=== PATIENT | male | born 1935 | race Caucasian/White ===

== ENCOUNTER 2017-02-24 11:22 | Day surgery (SDC) | payer OTHER, BC ==
[2017-02-24] MEDS ORDERED: NS 500 ML IV ONE (11:47)
--- NOTE | 2017-02-24 12:10 | PDPROPOC ---
Sedation Plan of Care Sedation Plan of Care: vital signs stable, mental status noted, patient educated of risks, benefits, alternatives, patient can tolerate sedation ASA Classification: ASA 2 Planned drugs: fentanyl, midazolam Mallampati Score: Class 2 Mallampati Reference Image: 2 Patient passed 3-3-2 rule?: Yes
--- NOTE | 2017-02-24 12:11 | PDGENHP ---
History & Physical Chief Complaint: phx polyps History of Present Illness: large polyps removed one year ago Pertinent Past, Social, Family History: no tobbaco quit 1965, no alcohol. fhx - no cancers Relevant Physical Exam: a+ox3. CTA. S1S2, RRR. +Bs, soft, nt Cardiorespiratory Assessment: class 2. nml cardia and lung exam
[2017-02-24 12:17] VITALS: TEMP 97.5
[2017-02-24] MEDS ORDERED: MIDAZOLAM 2 MG/2 ML VIAL ONE (12:19)
[2017-02-24] MEDS ORDERED: fentaNYL 100 MCG/2 ML INJ ONE (12:19)
[2017-02-24 13:12] VITALS: PULSE 57
--- NOTE | 2017-02-24 13:16 | GIREPORT ---
[facility] Surgical Services - Endoscopy Department Patient Name: Jeremie Wallace Procedure Date: 02/24/2017 12:04 PM Patient Type: Outpatient Attending MD/ ER Physician: Adriel Sim Procedure: Colonoscopy Indications: Surveillance: Piecemeal removal of large sessile adenoma last colonosco py (< 3 yrs) Providers: Hector Perla MD Medicines: Fentanyl 100 micrograms IV, Midazolam 5 mg IV Complications: No immediate complications. Estimated blood loss: Minimal. Description of Procedure: After obtaining informed consent, the scope was passed under direct vision. Throughout the proce dure, the patient's blood pressure, pulse, and oxygen saturations were monitored continuously. The Colonoscope with irrigation channel was introduced through the anus and advanced to the terminal ileum, with identification of the appendiceal orifice and IC valve. The colonoscopy was technica lly difficult and complex due to significant looping. Successful completion of the procedure was aid ed by increasing the dose of sedation medication and straightening and shortening the scope to obtain bowel loop reduction. The patient tolerated the procedure well. The quality of the bowel preparation w as good. Findings: The digital rectal exam was normal. The terminal ileum appeared normal. A 2 mm polyp was found in the proximal transverse colon. The polyp was sessile. The polyp was re moved with a cold biopsy forceps. Resection and retrieval were complete. Estimated blood loss was mini mal. A 8 mm polyp was found in the proximal transverse colon. The polyp was sessile. The polyp was re moved with a cold snare. Resection and retrieval were complete. Estimated blood loss was minimal. A post polypectomy scar was found in the proximal transverse colon. There was residual polypoid tissue. The polyp was removed with a hot snare. Resection and retrieval were complete. Estimated blood loss: none. A post polypectomy scar was found in the ascending colon. The scar tissue was healthy in appeara nce. There was no evidence of the previous polyp. A post polypectomy scar was found in the mid transverse colon. The scar tissue was healthy in appearance. There was no evidence of the previous polyp. Multiple small and large-mouthed diverticula were found in the sigmoid colon, descending colon a nd transverse colon. Non-bleeding internal hemorrhoids were found during retroflexion. The exam was otherwise without abnormality. Estimated Blood Loss: Estimated blood loss was minimal. Post Op Diagnosis: - The examined portion of the ileum was normal. - One 2 mm polyp in the proximal transverse colon, removed with a cold biopsy forceps. Resected and retrieved. - One 8 mm polyp in the proximal transverse colon, removed with a cold snare. Resected and retrieved. - Post-polypectomy scar in the proximal transverse colon. - Post-polypectomy scar in the ascending colon. - Post-polypectomy scar in the mid transverse colon. - Diverticulosis in the sigmoid colon, in the descending colon and in t he transverse colon. - Non-bleeding internal hemorrhoids. - The examination was otherwise normal. Recommendation: - Await pathology results. - My office will call with the pathology result with 5-7 days. If you h ave not heard from my office by 12-14, do not assume the pathology is bobo l, please call [phone] to get the pathology reults. One or two years pending review of pathology. - Repeat colonoscopy date to be determined after pending pathology resu lts are reviewed for surveillance based on pathology results. - Low fiber diet. - 30-35 grams of dietary fiber per day. Can use supplemental fiber. - A high fiber diet may decrease risk of complications from diverticulo sis. There is no need to avoid seeds or nuts. - Patient has a contact number available for emergencies. The signs and symptoms of potential delayed complications were discussed with the pat lashae. Return to normal activities tomorrow. Written discharge instructions we re provided to the patient. - Continue present medications. - Discharge patient to home (ambulatory). - Return to primary care physician as previously scheduled. - Thank you for allowing me to help in your patient's care. Do not hesi salas to call with any questions. Attending Participation: I personally performed the entire procedure. Pan Young M.D Hector Perla MD 02/24/2017 1:16:09 PM Number of Addenda: 0 Note Initiated On: 02/24/2017 12:04 PM Total Procedure Duration Time 0 hours 27 minutes 11 seconds [email or web address]
[2017-02-24 13:41] VITALS: BP 147/80; RESP 20; O2SAT 92
== END 2017-02-24 13:54 | disposition home or self-care (01) ==
LOC: FSGY 11:22
PROVIDERS: ATTEND Internal Medicine Gastroenterology
PROC: 0DBL8ZX Excision of Transverse Colon, Via Natural or Artificial Opening Endoscopic, Diagnostic (ICD-10-PCS; principal; 2017-02-24 12:30)
DX: D12.3 Benign neoplasm of transverse colon (principal); Z86.010 Personal history of colon polyps; K57.30 Diverticulosis of large intestine without perforation or abscess without bleeding; K64.8 Other hemorrhoids
CPT/HCPCS: J2250; J3010

== ENCOUNTER 2017-07-20 13:22 | Emergency (ER) | payer OTHER, BC ==
[2017-07-20 13:33] VITALS: BP 169/95; RESP 16; TEMP 98.2; O2SAT 95
[2017-07-20] MEDS ORDERED: LET GEL TOPICAL 1 EA SYR TP ONE (13:43)
--- NOTE | 2017-07-20 13:52 | EDPHY ---
H & P Stated Complaint: Hit head after L hip felt weak. denies LOC Time Seen by Provider: 07/20/17 13:26 HPI/ROS: CHIEF COMPLAINT: Head injury History by patient HISTORY OF PRESENT ILLNESS: 82-year-old man presents complaining of fall striking his head on the garage floor. Patient states that for the past few days he has been having some left hip pain which he attributed to may be straining muscle wall crawling out of his crawl space. He woke up this morning his hip was not painful and seem to be responding to Tylenol however when he stepped up in his garage the hip suddenly"gave out"and he went down striking the back of his head. His witnessed this event. He did not lose consciousness. Patient laid on the ground for a while and then was able to get up on his own and use a cane to help him get into the car. He said he felt sort of dizzy and unsteady and he still feels that way. There has been no nausea or vomiting. He denies any focal numbness weakness, difficulty speaking swallowing or visual problems. He takes a baby aspirin but no other blood thinners. He denies any hip pain or stiffness currently. Patient states that his hip is been bothering him for the past several days and that is very painful specially when he gets up in the morning. He has had 2 episodes of this given outward suddenly feels like he can't support him and he goes down and last a few seconds and then he is able to get up on his own. Not associated any other numbness or weakness or neurologic symptoms. Patient had an extensive workup for stroke about a year ago when he had an episode of ataxia including a negative MRI. REVIEW OF SYSTEMS: As in HPI, and all other systems reviewed and are negative Source: Patient, Family - Personal History Current Tetanus Diphtheria and Acellular Pertussis (TDAP): Unsure - Medical/Surgical History Hx Asthma: No Hx Chronic Respiratory Disease: No Hx Diabetes: No Hx Cardiac Disease: No Hx Renal Disease: No Hx Cirrhosis: No Hx Alcoholism: No Hx HIV/AIDS: No Hx Splenectomy or Spleen Trauma: No Other PMH: KIDNEY STONE, PROSTATE CA WITH SURGERY - Social History Smoking Status: Former smoker - Physical Exam Exam: General Appearance: Alert, elderly,pleasant and cooperative . Head: normocephalic, positive abrasion and hematoma mid parietal area Eyes: Pupils equal and round, reactive to light, no pallor or injection. Extraocular movements intact. Mouth: Mucous membranes moist. Neck: No bony tenderness, full range of motion without pain Respiratory: Normal, effort, lungs are clear to auscultation. No wheezes, rales or rhonchi. Cardiovascular: Regular rate and rhythm. S1, S2, no murmurs, gallops or rubs appreciated Gastrointestinal: Abdomen is soft and nontender, no masses, bowel sounds normal. Back: No CVA tenderness, no bony tenderness Neurological: Awake, alert and oriented x 3, no pronator drift, normal gait, no pronator drift Skin: Warm and dry, no rashes. Musculoskeletal: Right hip full range of motion without pain including internal -external rotation flexion and extension, No deformities or tenderness. Pelvis is stable and nontender Extremities: full range of motion, no edema, DP2+ bilat Psychiatric: Patient has normal affect, there is no agitation. Constitutional: Initial Vital Signs Temperature (C) 36.8 C 07/20/17 13:26 Heart Rate 93 07/20/17 13:26 Respiratory Rate 16 07/20/17 13:26 Blood Pressure 169/95 H 07/20/17 13:26 O2 Sat (%) 95 07/20/17 13:26 O2 Delivery Mode Room Air Allergies/Adverse Reactions: No Known Allergies Allergy (Verified 07/20/17 13:40) Home Medications: Medication Instructions Recorded Aspirin 81mg (*) DAILY 12/30/15 Atorvastatin Calcium HS 02/11/17 Fiber DAILY 02/11/17 Medical Decision Making - Diagnostics Imaging Results: Imaging Impressions Head CT 07/20/17 13:38 Impression: 1. Small right parietal scalp hematoma. 2. No acute fracture or intracranial hemorrhage. Findings were discussed with Yvan at the [facility] Emergency Department. He will convey the results to Dr. Kylie Melgar. Results called on July 20, 2017 at 1421 hours. Imaging: Discussed imaging studies w/ call box wirer Radiologist ED Course/Re-evaluation: 82-year-old man presents complaining of fall and head injury after his left hip "gave out". Hip symptoms have now resolved and patient has a completely normal neurologic exam as well as a normal exam except for tenderness along the greater trochanter and pain against resistance with AB duction of the hip. X- ray of the hip showed some arthritis but no evidence of acute fracture. Head CT was read as nothing acute per the radiologist. Wound on the head was non suturable abrasion. Patient is ambulatory in the emergency department. I think his leg giving out symptoms are atypical for stroke and given the pain and stiffness he has been experiencing I think this is more likely a musculoskeletal problem. I am recommending follow up with primary care physician and/or orthopedist in consideration of physical therapy. I discussed return precautions with the patient and his . Patient is discharged home in stable condition. - Data Points Medications Given: Discontinued Medications Tetracaine/Epinephrine/Lidocaine (Let Gel Topical) 1 ea TP EDNOW ONE Stop: 07/20/17 13:44 Last Admin: 07/20/17 13:45 Dose: 1 ea Departure - Departure Disposition: Home, Routine, Self-Care Clinical Impression: Hip pain, left Closed head injury Qualifiers: Encounter type: initial encounter Qualified Code(s): S09.90XA - Unspecified injury of head, initial encounter Scalp abrasion Qualifiers: Encounter type: initial encounter Qualified Code(s): S00.01XA - Abrasion of scalp, initial encounter Condition: Good Instructions: Head Injury (ED) Additional Instructions: You were seen by Dr. Kylie Melgar today. Your CT scan showed no evidence of internal bleeding. He may take Tylenol as needed for pain for your headache and hip. Please follow up with her primary care physician as soon as possible to have your hip evaluated. Consider physical therapy. Return for any worsening or new concerns. Referrals: Jacob Ramos MD [Primary Care Provider] - As per Instructions
[2017-07-20] MEDS ORDERED: TDAP ADULT 0.5 ML INJ (BOOSTRIX) IM ONE (15:15)
[2017-07-20 15:44] VITALS: PULSE 90
== END 2017-07-20 15:43 | disposition home or self-care (01) ==
LOC: CED 13:22
DX: S00.01XA Abrasion of scalp, initial encounter (principal); S79.912A Unspecified injury of left hip, initial encounter; Z23 Encounter for immunization; Z85.46 Personal history of malignant neoplasm of prostate; Z87.891 Personal history of nicotine dependence; W18.09XA Striking against other object with subsequent fall, initial encounter
CPT/HCPCS: 70450-PO; 73502-PO

== ENCOUNTER 2018-03-26 09:42 | Emergency (ER) | payer OTHER, BC ==
[2018-03-26] MEDS ORDERED: FLUCONAZOLE 150 MG TAB PO ONE (10:11)
--- NOTE | 2018-03-26 10:14 | EDPHY ---
H & P Time Seen by Provider: 03/26/18 09:48 HPI/ROS: CHIEF COMPLAINT: Left axilla rash and itching HISTORY OF PRESENT ILLNESS: Patient presents with itching and rash to the left axillary area that started on Wednesday. He had partial replacement of his left shoulder performed by Dr. Dee on Wednesday. He states the itching is severe , he called Dr. Dee office and was told to come in to the emergency department. He denies fevers, chills, chest pain, shortness of breath. No oral symptoms. No rash elsewhere. Shoulder is otherwise doing fine although decreased range of motion as postsurgical instructions currently. REVIEW OF SYSTEMS: Negative except per HPI. General Appearance: Alert, no distress. Eyes: Pupils equal and round no icterus HEENT: Oropharynx clear, no angioedema. Respiratory: No respiratory distress, lungs clear to auscultation bilaterally, no wheezing. Cardiac: Regular rate and rhythm no murmurs rubs or gallops. Neurological: Awake, alert, no focal deficits. Skin: Warm and dry, left axillary region with erythematous papular rash with satellite lesions consistent with candidal infection. Difficult to visualize entire axillary region as strict postsurgical instructions with decreased range of motion. Wound area bandaged without drainage. Musculoskeletal: Neck is supple nontender. Extremities are symmetrical, distal functions intact bilaterally, limited range of motion left shoulder. No edema. Psychiatric: Patient is oriented X 3, there is no agitation. Medical/surgical history: Kidney stones, prostate cancer with surgery, left shoulder partial replacement, right shoulder replacement, hyperlipidemia. Social history: Previous smoker stopped in 1963. No EtOH, no drugs. Smoking Status: Former smoker Constitutional: Initial Vital Signs Temperature (C) 36.5 C 03/26/18 09:49 Heart Rate 93 03/26/18 09:49 Respiratory Rate 16 03/26/18 09:49 Blood Pressure 158/92 H 03/26/18 09:49 O2 Sat (%) 94 03/26/18 09:49 O2 Delivery Mode Room Air Allergies/Adverse Reactions: No Known Allergies Allergy (Verified 03/26/18 09:50) Home Medications: Medication Instructions Recorded Aspirin 81mg (*) DAILY 12/30/15 Atorvastatin Calcium HS 02/11/17 Fiber DAILY 02/11/17 Nystatin/Triamcin 30 gm TP BID #1 oint...g. 03/26/18 [Nystatin-Triamcinolone Ointm] Stool Softener 03/26/18 Xarelto 03/26/18 Medical Decision Making Differential Diagnosis: Differential diagnosis includes but is not limited to cellulitis, yeast infection, allergic reaction, drug rash. After evaluation suspicious for candidal infection secondary to decreased range of motion and hygiene of the left axilla. Will treat with oral Diflucan and topical nystatin. Discussed home care and follow-up. Return precautions reviewed as well. Stable for discharge. Departure - Departure Clinical Impression: Katherine infection of flexural skin Condition: Good Instructions: Skin Yeast Infection (ED) Additional Instructions: Use topical nystatin as prescribed. Follow up with Dr. Dee later this week if not improving. Return for more serious symptoms to the emergency department. Referrals: Jacob Ramos MD [Primary Care Provider] - As per Instructions Prescriptions: Nystatin/Triamcin [Nystatin-Triamcinolone Ointm] 30 gm TP BID #1 oint...g.
[2018-03-26 10:22] VITALS: BP 148/88
== END 2018-03-26 10:20 | disposition home or self-care (01) ==
LOC: CED 09:42
DX: B37.2 Candidiasis of skin and nail (principal)

== ENCOUNTER 2018-06-22 07:22 | Day surgery (SDC) | payer OTHER, BC ==
[2018-06-22] MEDS ORDERED: LR 1,000 ML IV ONE (07:34)
--- NOTE | 2018-06-22 08:45 | PDGENHP ---
History & Physical Chief Complaint: phx polyps History of Present Illness: large plyps with residual tissue, possible APC Pertinent Past, Social, Family History: hyperchol,. fhx no cancers. no tobacco since 1965 no alcohol Relevant Physical Exam: A+Ox3. CTA. S1S2. +BS, soft nt Cardiorespiratory Assessment: class 2
--- NOTE | 2018-06-22 08:45 | PDPROPOC ---
Sedation Plan of Care Sedation Plan of Care: vital signs stable, mental status noted, patient educated of risks, benefits, alternatives, patient can tolerate sedation ASA Classification: ASA 2 Planned drugs: fentanyl, midazolam Mallampati Score: Class 2 Mallampati Reference Image: Patient passed 3-3-2 rule?: Yes
[2018-06-22] MEDS ORDERED: fentaNYL 100 MCG/2 ML INJ ONE (08:53)
[2018-06-22] MEDS ORDERED: MIDAZOLAM 2 MG/2 ML VIAL ONE (08:53)
[2018-06-22] MEDS ORDERED: MIDAZOLAM 2 MG/2 ML VIAL IVP ONE (09:29)
[2018-06-22] MEDS ORDERED: fentaNYL 100 MCG/2 ML INJ IVP ONE (09:30)
--- NOTE | 2018-06-22 10:16 | GIREPORT ---
[facility] Surgical Services - Endoscopy Department Patient Name: Jeremie Wallace Procedure Date: 06/22/2018 8:14 AM Patient Type: Outpatient Attending MD/ ER Physician: Prudencio Perla MD Procedure: Colonoscopy Indications: Surveillance: Piecemeal removal of large sessile adenoma last colonosco py (< 3 yrs), High risk colon cancer surveillance: Personal history of adenom a (10 mm or greater in size) Providers: Prudencio Perla MD Referring MD: Jacob Ramos Medicines: Fentanyl 100 micrograms IV, Midazolam 5 mg IV Complications: No immediate complications. Estimated blood loss: Minimal. Description of Procedure: After obtaining informed consent, the scope was passed under direct vis ion. Throughout the procedure, the patient's blood pressure, pulse, and oxyg en saturations were monitored continuously. The Colonoscope with irrigatio n channel was introduced through the anus and advanced to the cecum, identified by the appendiceal orifice, IC valve and transillumination. The colonoscopy was performed without difficulty. The patient tolerated the procedure well. The quality of the bowel preparation was good. Findings: The digital rectal exam was normal. A post polypectomy scar was found in the proximal transverse colon. The scar tissue was healthy in appearance. There was no evidence of the previous polyp. Biopsies were taken with a cold forceps for histology. Estimated blood loss was minimal. A 10 mm polyp was found in the mid transverse colon. The polyp was semi-sessile. The polyp was removed with a cold snare. Resection and retrieval were complete. Estimated blood loss was minimal. A 3 mm polyp was found in the mid transverse colon. The polyp was sessi le. The polyp was removed with a cold biopsy forceps. Resection and retriev al were complete. Estimated blood loss was minimal. A post polypectomy scar was found in the mid transverse colon. The scar tissue was healthy in appearance. There was no evidence of the previous polyp. Multiple diverticula were found in the sigmoid colon, descending colon and transverse colon. The exam was otherwise without abnormality. Estimated Blood Loss: Estimated blood loss was minimal. Post Op Diagnosis: - Post-polypectomy scar in the proximal transverse colon. Biopsied. - One 10 mm polyp in the mid transverse colon, removed with a cold snar e. Resected and retrieved. - One 3 mm polyp in the mid transverse colon, removed with a cold biops y forceps. Resected and retrieved. - Post-polypectomy scar in the mid transverse colon. - Diverticulosis in the sigmoid colon, in the descending colon and in t he transverse colon. - The examination was otherwise normal. Recommendation: - Await pathology results. - My office will call with the pathology result with 5-7 days. If you h ave not heard from my office by 12-14, do not assume the pathology is bobo l, please call [phone] to get the pathology results. - Repeat colonoscopy in 2 years for surveillance. - High fiber diet indefinitely. - 30-35 grams of dietary fiber per day. Can use supplemental fiber. - A high fiber diet may decrease risk of complications from diverticulo sis. There is no need to avoid seeds or nuts. - Patient has a contact number available for emergencies. The signs and symptoms of potential delayed complications were discussed with the pat ient. Return to normal activities tomorrow. Written discharge instructions we re provided to the patient. - Continue present medications. - Avoid Aspirin and NSAIDs for 7-10 days except as used for cardi or st roke prevention. - Discharge patient to home (ambulatory). - Return to primary care physician as previously scheduled. - Thank you for allowing me to help in your patient's care. Do not hesi josue to call with any questions. Attending Participation: I personally performed the entire procedure. Pan Young M.D Prudencio Perla MD 06/22/2018 10:15:27 AM This report has been signed electronicallyMatthew MD Pan Number of Addenda: 0 Note Initiated On: 06/22/2018 8:14 AM Total Procedure Duration Time 0 hours 44 minutes 32 seconds [email or web address]
[2018-06-22 10:55] VITALS: BP 136/87
== END 2018-06-22 10:30 | disposition home or self-care (01) ==
LOC: FSGY 07:22
PROVIDERS: ATTEND Internal Medicine Gastroenterology
PROC: 0DBL8ZX Excision of Transverse Colon, Via Natural or Artificial Opening Endoscopic, Diagnostic (ICD-10-PCS; principal; 2018-06-22 09:00)
DX: Z12.11 Encounter for screening for malignant neoplasm of colon (principal); D12.3 Benign neoplasm of transverse colon; K57.30 Diverticulosis of large intestine without perforation or abscess without bleeding; E78.5 Hyperlipidemia, unspecified; Z86.010 Personal history of colon polyps; Z85.46 Personal history of malignant neoplasm of prostate; Z87.891 Personal history of nicotine dependence; Z96.612 Presence of left artificial shoulder joint; Z96.611 Presence of right artificial shoulder joint
CPT/HCPCS: J2250; J3010

== ENCOUNTER 2018-09-20 10:26 | Day surgery (SDC) | payer OTHER, BC ==
--- NOTE | 2018-09-19 22:10 | GHP ---
[f rep st] HISTORY AND PHYSICAL CURRENT COMPLAINT: Right knee pain. HISTORY OF PRESENT ILLNESS: The patient is an 83-year-old male who had a sudden onset of right knee pain within the last several weeks. MRI exam reveals what appear to new medial and lateral meniscal tears. He wishes to have surgery in order to resolve the problem. ALLERGIES: He lists no drug allergies. CURRENT MEDICATIONS: Include aspirin, atorvastatin, nystatin. PRIOR MEDICAL PROBLEMS: Include arthritis, cancer, high cholesterol, prostate disease. PRIOR SURGERIES: Include a right total shoulder, prostatectomy, shoulder hemiarthroplasty, kidney en doscopy. SOCIAL HISTORY: He is a former smoker. He is not a drinker. PHYSICAL EXAM: HEENT: His pupils are equal, round, reactive to light. CHEST: Clear to auscultatio n. HEART: Regular rate and rhythm. ABDOMEN: Soft and nontender. RIGHT KNEE: Moderate effusion. He is tender on the lateral joint lines. IMAGING: MRI reveals some arthritic changes in the face of what appear to be new onset medial and la teral meniscal tears. ASSESSMENT: Patient is status post right medial and lateral meniscal tears. PLAN: Take him to the operating room to undergo a right knee arthroscopy. /[id number]/MODL
--- NOTE | 2018-09-20 09:21 | PDHPUP ---
History & Physical Update H&P update statement: This history and physical update is based on an assessment of the patient which was completed after admission or registration (within 24 hours), but prior to the surgery/procedure. H&P update: H&P reviewed & patient examined, no change in patient's condition since H&P completed
[2018-09-20] MEDS ORDERED: ceFAZolin 2 GM/DEXTROSE 100 ML IV ONE (10:38)
[2018-09-20] MEDS ORDERED: LR 1,000 ML IV SCH ×2 (10:38→14:30)
[2018-09-20] MEDS ORDERED: LR 1,000 ML IV ONE (10:39)
[2018-09-20] MEDS ORDERED: LIDOCAINE 1% 2 ML INJ ID PRN (10:39)
[2018-09-20] MEDS ORDERED: BUPIVACAINE/EPI 0.5% 30 ML SDV ONE (10:47)
--- NOTE | 2018-09-20 12:44 | PDANEPAE ---
ANE History of Present Illness right knee pain, here for right knee arthroscopy ANE Past Medical History - Cardiovascular History Hx Hypertension: No Hx Arrhythmias: No Hx Chest Pain: No Hx Coronary Artery / Peripheral Vascular Disease: No Hx CHF / Valvular Disease: No Hx Palpitations: No Cardiovascular History Comment: HLD - Pulmonary History Hx COPD: No Hx Asthma/Reactive Airway Disease: No Hx Recent Upper Respiratory Infection: No Hx Oxygen in Use at Home: No Hx Sleep Apnea: No Sleep Apnea Screening Result - Last Documented: Negative Pulmonary History Comment: no SOB climbing 2 flights of stairs - Neurologic History Hx Cerebrovascular Accident: No Hx Seizures: No Hx Dementia: No Neurologic History Comment: dizzy spell F/U by Dr Daniele Massey and CT and MRI NEG. Pelayo's palsy - Endocrine History Hx Diabetes: No - Renal History Hx Renal Disorders: Yes Renal History Comment: Kidney stones. Kinked ureter. Prostate CA s/p prostatectomy, radiation therapy. NOCTURIA - Liver History Hx Hepatic Disorders: No - Neurological & Psychiatric Hx Hx Neurological and Psychiatric Disorders: No - Cancer History Hx Cancer: Yes Cancer History Comment: PROSTATE - Congenital Disorder History Hx Congenital Disorders: No - GI History Hx Gastrointestinal Disorders: Yes Gastrointestinal History Comment: PREV COLON POLYPS. Diverticulosis - Other Health History Other Health History: skin bruises easily - Chronic Pain History Chronic Pain: No - Surgical History Prior Surgeries: L SHOULDER REPLACEMENT 03/2018. COLONOSCOPY X3 WITH POLYP REMVL. PROSTATECTOMY FOR CA. REMOVAL KIDNEY STONE AND BLOCKED URETER, Ureter repair. RT SHLDR REPLACEMENT. TYE CATARACT ANE Review of Systems Review of Systems: - Exercise capacity METS (RN): 4 METS ANE Patient History - Allergies Allergies/Adverse Reactions: chlorhexidine Allergy (Verified 09/20/18 11:06) Rash - Home Medications Home Medications: Aspirin 81mg (*) 81 mg DAILY 12/30/15 [Last Taken 09/13/18] Atorvastatin Calcium 20 mg PO HS 02/11/17 [Last Taken 09/19/18] Fiber DAILY 02/11/17 [Last Taken 1 Week Ago ~06/15/18] Stool Softener 03/26/18 [Last Taken 09/14/18] Acetaminophen [Acetaminophen Extra Strength] 500 mg PO DAILY PRN 09/16/18 [Last Taken 09/19/18] Cholecalciferol (Vitamin D3) [Vitamin D3] 2,000 unit PO 09/16/18 [Last Taken 07/05] Ferrous Sulfate mg PO 09/16/18 [Last Taken 09/16/18] - NPO status NPO Since - Liquids (Date): 09/20/18 NPO Since - Liquids (Time): 07:30 NPO Since - Solids (Date): 09/20/18 NPO Since - Solids (Time): 07:30 - Smoking Hx Smoking Status: Former smoker - Family Anes Hx Family Hx Anesthesia Complications: None. ANE Labs/Vital Signs - Vital Signs Height: 180.34 cm Weight: 90.718 kg ANE Physical Exam - Airway Neck exam: FROM, decreased ROM Mallampati Score: Class 2 Mouth exam: normal dental/mouth exam - Pulmonary Pulmonary: no respiratory distress, no rales or rhonchi - Cardiovascular Cardiovascular: regular rate and rhythym, no murmur, rub, or gallop - ASA Status ASA Status: III ANE Anesthesia Plan Anesthesia Plan: GA w LMA Total IV Anesthesia: No
[2018-09-20] MEDS ORDERED: fentaNYL 100 MCG/2 ML INJ ONE ×2 (13:08→14:36)
[2018-09-20] MEDS ORDERED: LIDOCAINE 2% 100 MG/5 ML SYR ONE (13:08)
[2018-09-20] MEDS ORDERED: PROPOFOL 200 MG/20 ML VIAL ONE (13:09)
[2018-09-20] MEDS ORDERED: oxyCODONE IR 5 MG TAB PO PRN ×2 (13:42→14:12)
[2018-09-20] MEDS ORDERED: ACETAMINOPHEN 500 MG TAB PO PRN (13:42)
[2018-09-20] MEDS ORDERED: MEPERIDINE 25 MG/0.5 ML AMP IVP PRN (13:42)
[2018-09-20] MEDS ORDERED: ONDANSETRON 4 MG/2 ML VIAL IVP PRN ×2 (13:42→14:12)
[2018-09-20] MEDS ORDERED: NALOXONE HCL 0.4 MG/ML INJ IVP PRN (13:42)
[2018-09-20] MEDS ORDERED: fentaNYL 100 MCG/2 ML INJ IVP PRN (13:42)
[2018-09-20] MEDS ORDERED: LACTULOSE 20 GM/30 ML UDCUP PO PRN (14:12)
[2018-09-20] MEDS ORDERED: traMADol 50 MG TAB PO PRN (14:12)
[2018-09-20] MEDS ORDERED: DIPHENOXYLATE/ATROPINE LOMOTIL 1 TAB PO PRN (14:12)
[2018-09-20] MEDS ORDERED: PROMETHAZINE HCL 25 MG/ML INJ IVP PRN (14:12)
[2018-09-20] MEDS ORDERED: TAPENTADOL HCL 50 MG TAB PO PRN (14:12)
[2018-09-20] MEDS ORDERED: CYCLOBENZAPRINE 10 MG TAB PO PRN (14:12)
[2018-09-20] MEDS ORDERED: TEMAZEPAM 15 MG CAP PO PRN (14:12)
[2018-09-20] MEDS ORDERED: MAGNESIUM HYDROXIDE 30 ML UDCUP PO PRN (14:12)
[2018-09-20] MEDS ORDERED: POLYETHYLENE GLYCOL 3350 17 GM PKT PO PRN (14:12)
[2018-09-20] MEDS ORDERED: KETOROLAC 15 MG/1 ML SDV IVP ONE (14:12)
[2018-09-20] MEDS ORDERED: METOCLOPRAMIDE 10 MG/2 ML VIAL IVP PRN (14:12)
[2018-09-20] MEDS ORDERED: diphenhydrAMINE 25 MG CAP PO PRN (14:12)
[2018-09-20] MEDS ORDERED: BISACODYL 10 MG SUPP PR PRN (14:12)
[2018-09-20] MEDS ORDERED: PROMETHAZINE HCL 25 MG SUPPR PR PRN (14:12)
[2018-09-20] MEDS ORDERED: ONDANSETRON DISINTEGRATING 4 MG TAB PO PRN (14:12)
--- NOTE | 2018-09-20 14:12 | POSTOPPROG ---
Post Op Note Date of Operation: 09/20/18 Surgeon: Toma Dee Anesthesia: LMA Pre-op Diagnosis: r mmt/lmt/oa Procedure: r knee scope w/ partial med/lat menisectomy/ chondroplasty Inf/Abcess present in the surg proc area at time of surgery?: No Depth: Deep Incisional (Fascial) EBL: 50-100
--- NOTE | 2018-09-20 14:17 | POSTANESTH ---
Post Anesthetic Evaluation Cardiovascular Status: Normal, Stable Respiratory Status: Normal, Stable Level of Consciousness/Mental Status: Can Participate in Eval, Moderately Sleepy Pain Control: Adequate, Prn Tx Ordered Nausea/Vomiting Control: Adequate, Prn Tx Ordered Complications Possibly Related to Anesthesia: None Noted
[2018-09-20] MEDS ORDERED: ONDANSETRON 4 MG/2 ML VIAL ONE (14:37)
[2018-09-20] MEDS ORDERED: KETOROLAC 15 MG/1 ML SDV ONE (14:37)
--- NOTE | 2018-09-20 14:42 | GOP ---
[f rep st] OPERATIVE REPORT DATE OF OPERATION: 09/20/2018 SURGEON: Toma Dee MD ANESTHESIA: LMA. 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 PROCEDURE PERFORMED: Right knee arthroscopy with partial medial and partial lateral meniscectomy, an d chondroplasty of all 3 compartments. FINDINGS: INDICATIONS: An 83-year-old male with a known history of arthritis within his knee, with a sudden on set of pain approximately 3 to 4 weeks ago. MRI exam revealed what appeared to be an acute meniscal tear. He wishes to have surgery in order to resolve the problem. DESCRIPTION OF PROCEDURE: The patient was brought to the operating room after the right side had bee n identified as the correct side by the patient, nurse, and physician. Once in the operating room, h e was placed under general anesthesia using an LMA. Once asleep, he had a tourniquet placed around t he upper portion of the right thigh and both legs placed in appropriate leg holders. The right lower extremity was then sterilely prepped and draped in the usual fashion using GSI solution. Once prepp ed and draped, an incision was made lateral to the patellar tendon between the inferior pole of hendricks la and tibial plateau, with the camera introduced without difficulty. Inspection of the joint reveal ed no loose bodies in the suprapatellar pouch or the medial or lateral gutter. There were grade 3 to 4 chondral changes noted to the patella and to the trochlea. Further inspection revealed the ACL li gament to be intact. Inspection of the medial compartment revealed grade 3 chondral changes througho ut the medial compartment with tearing of the body and posterior horn of the medial meniscus. Inspec tion of the lateral compartment revealed tearing of almost the entirety of the lateral meniscus, as w ell as extensive grade 3 and some patchy areas of grade 4 chondral changes of the lateral compartment . Therefore, a second incision was made medial to the patellar tendon between the inferior pole of t he patella and tibial plateau. Alternatively using a straight biter, a 4.0 mm smooth shaver was used to debride and debulk tears of the medial and lateral meniscus, and remove the loose fragments of ca rtilage from the medial and lateral compartments. Once completed, attention was turned to the patell ofemoral joint, which had synovium removed from the medial and lateral gutter, and the suprapatellar pouch, and chondroplasty done to the patellofemoral joint. Once completed, all instruments were falguni marci from the knee with 30 cc of Marcaine infused into the joint. The 2 portal sites were closed usin g 3-0 nylon suture in a [id number]-type stitch. The wounds were dressed with Xeroform and a 4 x 4, wrapped in Webril. Tourniquet was deflated at 34 minutes. Leg was completely undraped in the op erating room, taking it out of its leg landry. Tourniquet was removed from the thigh and an Kalin wrap placed around the knee. The left leg was taken out of its leg landry. He was placed supine. He wa s woken up, extubated, transferred onto a stretcher, and sent to the recovery room in good condition. TOURNIQUET TIME: 34 minutes. /[id number]/MODL
[2018-09-20] MEDS ORDERED: ACETAMINOPHEN 500 MG TAB ONE (15:16)
[2018-09-20] MEDS ORDERED: oxyCODONE IR 5 MG TAB ONE (15:34)
[2018-09-20 16:27] VITALS: BP 169/77
[2018-09-20] MEDS ORDERED: ACETAMINOPHEN 325 MG TAB PO SCH (20:00)
[2018-09-20] MEDS ORDERED: FAMOTIDINE 20 MG TAB PO SCH (21:00)
[2018-09-20] MEDS ORDERED: SENNOSIDES/DOCUSATE SODIUM TAB PO SCH (21:00)
== END 2018-09-20 16:25 | disposition home or self-care (01) ==
LOC: FSGY 10:26
PROVIDERS: ATTEND Orthopaedic Surgery
DX: S83.221A Peripheral tear of medial meniscus, current injury, right knee, initial encounter (principal); S83.271A Complex tear of lateral meniscus, current injury, right knee, initial encounter; X50.9XXA Other and unspecified overexertion or strenuous movements or postures, initial encounter; Y92.9 Unspecified place or not applicable; Y99.8 Other external cause status; M23.91 Unspecified internal derangement of right knee; M17.11 Unilateral primary osteoarthritis, right knee; E78.5 Hyperlipidemia, unspecified; Z85.46 Personal history of malignant neoplasm of prostate; Z92.3 Personal history of irradiation; Z96.611 Presence of right artificial shoulder joint; Z87.891 Personal history of nicotine dependence
CPT/HCPCS: J0690; J1885; J2001; J2270; J2405; J2704; J3010

== ENCOUNTER → 2018-09-27 | Outpatient (CLI) | payer OTHER, BC | LOC: CIMAGING 13:12 | PROVIDERS: ATTEND Physician Assistant | DX: M79.89 Other specified soft tissue disorders (principal); Z98.890 Other specified postprocedural states | CPT/HCPCS: 93971-PO ==